=== PATIENT | male | born 1945 | race Caucasian/White ===

== ENCOUNTER → 2024-03-18 11:03 | Outpatient (REF) | payer MEDICARE, OTHER, SELFPAY | LOC: HWRAD 11:03 | PROVIDERS: ATTENDING PHYSICIAN Family Medicine | DX: R19.01 Right upper quadrant abdominal swelling, mass and lump (principal) | CPT/HCPCS: 76700 ==

== ENCOUNTER 2024-12-17 00:43 | Emergency (ER) | payer MEDICARE, OTHER, SELFPAY ==
[2024-12-17 01:10] VITALS: BMI 31.9
[2024-12-17] MEDS: ADACEL 0.5 ML IM (02:10)
[2024-12-17 02:16] VITALS: BP 145/62
--- NOTE | 2024-12-17 02:57 | ED.GENMED ---
History of Present Illness
General
Chief Complaint: Fall
Source: patient
Exam Limitations: none
Time Seen by Provider: 12/17/24 00:54
Nursing documentation reviewed up to this point in time: agreed with
History of Present Illness
History of Present Illness:
This is a 79 y/o male with a pmh of afib on eliqus, htn, hlp who presents to the ER today with concerns of a fall. Patient reports that he was getting ready to go to bed this evening and was tucked in the bed when he forgot to take one of his
medications. Patient reports that he was getting out of bed to go get the medication when he was climbing out of bed and hit the right side of his head on the nightstand and fell on the ground. Patient reports that after the fall, he was able to
get up on his own okay is able to ambulate without any difficulties. He did not lose consciousness. Patient denies any neck pain. He reports that he felt blood drip down his face and noticed that hr had cut his head. Patient denies any dizziness
or lightheadedness. He denies any headaches. He denies any pain in his upper extremities. He denies any hip pain. He is not up-to-date on his tetanus vaccination.
Review of Systems
Review of Systems
All Other Systems: ROS reviewed and negative except as documented in HPI and ROS
Phy Exam
Physical Exam
Physical Exam:
General: Patient is well appearing and in no acute distress; non-toxic
Skin: 2 cm well approximated laceration with surrounding abrasion noted to right scalp
Head: See above
Eyes: Sclera non-icteric. EOMs intact.
Neck: No midline spinal tenderness
Cardiac: Regular rate and rhythm, no murmurs, no tenderness to external chest wall
Peripheral Vascular: No lower extremity swelling or edema
Pulm: Normal respiratory effort, no wheezes, rales, or rhonchi
Abdomen: No abdominal tenderness to palpation
Musculoskeletal: No bony tenderness palpation of the right upper extremity. Full range of motion bilateral upper extremities.
Neuro: CN II-XII intact, no focal neurologic deficits.
Psychiatric: Appropriate mood and affect.
Course
Orders/Labs/Results
Orders:
Orders
12/17/24 01:09
CT Head W/o Iv Contrast Urgent
Comment:
Reason For Exam: fall on thinners
12/17/24 01:37
Tetanus/Diphth/Acelpertussis [Adacel] 0.5 ml IM .ONCE ONE
Vital Signs
Initial and Last Documented VS:
Initial Vital Signs
Temp Pulse Resp BP Pulse Ox
98.1 F 62 16 145/62 97
12/17/24 02:16 12/17/24 02:16 12/17/24 02:16 12/17/24 02:16 12/17/24 02:16
Last Documented Vital Signs
Temp Pulse Resp BP Pulse Ox
98.1 F 62 16 145/62 97
12/17/24 02:16 12/17/24 02:16 12/17/24 02:16 12/17/24 02:16 12/17/24 02:16
Procedures
Laceration Closure
right forehead:
Status of Wound: clean
Size of Wound in cm: 2
Preparation: cleaned with saline
Type of Closure: single layer closure and Dermabond-skin glue
MDM/Problems Addressed
Differential Diagnosis Includes:
ddx include abrasion, laceration, subdural hematoma, epidural hematoma
MDM/Problems Addressed:
This is a 79 y/o male with a pmh of afib on eliqus, htn, hlp who presents to the ER today with concerns of a fall. Patient reports that he was getting ready to go to bed this evening and was tucked in the bed when he forgot to take one of his
medications. He was trying to get up when he lost his balance and fell, hitting his head on the bedside table. He has no complaints at this time other than a laceration on his forehead. Physical exam is well-appearing in no acute distress he has
a small laceration noted to the right forehead which was repaired with Dermabond and Steri-Strips. His tetanus was updated. No midline spinal tenderness. Nonfocal neurologic exam. Patient stable for discharge. Return precautions discussed.
Chronic conditions affecting care:
afib
*Critical Care Note
Total Time (30-74mins, 75-104mins- exclusive of procedures): Not Applicable
ED Attending Note
-
Portions of this chart may have been created with voice recognition software.� Occasional wrong word or��sound alike� substitutions may have occurred due to the inherent limitations of voice recognition software.
Discharge Plan
Departure
Patient Disposition: Home (Routine Discharge)
Date of Disposition: 12/17/24
Time of Disposition: 02:30
Patient with high blood pressure during this ER visit?: Yes
Condition: Good
Discharge Problem:
Fall, Scalp laceration
Instructions: Laceration Repair With Glue (DC), Head Injury in Adults (DC)
Referrals:
Cem Gold, DO [Family Provider] -
Activity Restrictions/Additional Instructions:
Please keep the wound dry for 24 hours. After 24 hours, you can get the wound wet. Please do not apply hydrogen peroxide or alcohol over the wound as this will dissolve the glue. Please look at times of infection such as surrounding redness to
the wound, purulent drainage, or increasing pain. Fevers or chills.
Please follow-up with your primary care provider.
PLEASE RETURN EMERGENCY DEPARTMENT TO DEVELOP CHEST PAIN, SHORTNESS OF BREATH, NAUSEA, VOMITING, HEADACHES, WEAKNESS IN ONE-SIDED BODY VERSUS OTHER, DIFFICULTY SPEAKING, DIFFICULTY AMBULATE, OR ANY OTHER SIGNS OR SYMPTOMS WORRISOME TO YOU.
Interventions
Interventions:
*Risk Screen - Suicide Last Done: 12/17/24 00:49
*General Assessment Last Done: 12/17/24 01:10
*Neglect/Abuse Screening Last Done: 12/17/24 00:49
*ED- Fall Risk Assessment Last Done: 12/17/24 01:10
*ED COVID-19 Vaccine History Last Done: 12/17/24 01:10
*Nursing Disposition Last Done: 12/17/24 02:38
ED-Musculoskeletal Assessment Last Done: 12/17/24 01:10
ED- Neurological Assessment Last Done: 12/17/24 01:10
ED-Skin Assessment Last Done: 12/17/24 01:10
Discharge Date and Time
Discharge Date/Time: 12/17/24 02:39
Print Language: LATVIAN
== END 2024-12-17 02:39 | disposition home or self-care (01) ==
LOC: EMR 00:43
PROVIDERS: EMERGENCY PHYSICIAN Emergency Medicine; FAMILY PHYSICIAN Family Medicine
DX: S01.81XA Laceration without foreign body of other part of head, initial encounter (principal); S01.01XA Laceration without foreign body of scalp, initial encounter; W18.39XA Other fall on same level, initial encounter; I48.91 Unspecified atrial fibrillation; I10 Essential (primary) hypertension; E78.00 Pure hypercholesterolemia, unspecified
CPT/HCPCS: 99284; 12001; 70450; 90715